=== PATIENT | female | born 1955 | race Caucasian/White ===

== ENCOUNTER 2017-05-19 06:42 | Day surgery (SDC) | payer OTHER ==
[~2017-05-19] VITALS: Ht 165.1 cm; Wt 72.8 kg
[~2017-05-19 06:42] MED LIST: ACET500 PO; CENTRUM SILVER1 EAC1 PO; CHOL10002 PO; Cranberry500 M1 PO; DOCU100 PO; HYDR1TAB94 PO; LORA10 PO; Milk Of Ma800 MG/5 M PO; SENN187 PO; Stool Softener100 MG PO; TOLTERODINE PO
== END 2017-05-19 09:14 | disposition home or self-care (01) ==
LOC: ORSCSDS 06:42
PROVIDERS: Internal Medicine Gastroenterology
PROC: 0DBH8ZX Excision of Cecum, Via Natural or Artificial Opening Endoscopic, Diagnostic (ICD-10-PCS; principal; 2017-05-19 08:00)
PROC: 0DBL8ZX Excision of Transverse Colon, Via Natural or Artificial Opening Endoscopic, Diagnostic (ICD-10-PCS; principal; 2017-05-19 08:00)
PROC: 0DBP8ZX Excision of Rectum, Via Natural or Artificial Opening Endoscopic, Diagnostic (ICD-10-PCS; principal; 2017-05-19 08:00)
DX: Z12.11 Encounter for screening for malignant neoplasm of colon (principal); D12.0 Benign neoplasm of cecum; D12.3 Benign neoplasm of transverse colon; K62.1 Rectal polyp; K63.89 Other specified diseases of intestine
CPT/HCPCS: 88305; J0330; J1980; J2405; J7120

== ENCOUNTER 2024-03-29 13:01 | Day surgery (SDC) | payer OTHER ==
[~2024-03-29] VITALS: Ht 162.6 cm; Wt 68.3 kg
[~2024-03-29 13:01] MED LIST changes: +Balanced Salt Epinephrine Irrigation Solution 500 mL IR SCH; +FentaNYL Citrate 50 MCG/ML 2 ML Injection ONE; +Lidocaine HCl/Pf 1% 5 ML VIAL XX SCH; +Midazolam HCl 1MG / ML 2ML Vial ONE; +Moxifloxacin HCL 0.5 MG/0.1 ML 0.4MLSYR LEFTEYE SCH; +PHENYLEPHRINE\\TROPICAMIDE\\TETRACAINE OPHTHALMIC DILATING SOLN LEFTEYE PRN; +Povidone-Iodine 450 DROP/30 ML Solution LEFTEYE SCH; +Povidone-Iodine 450 DROP/30 ML Solution ONE; +Tetracaine HCl/Pf 0.5% Opth Soln 4 ml ONE
[2024-03-29] MEDS ORDERED: FOSAMAX70 MG PO (13:20)
--- NOTE | 2024-03-29 13:29 | NUR ---
03/29/24 1329 Justina Fitch CALL LIGHT WITHIN REACH. TETRACAINE IN LEFT EYE AT 1323 AND PLEDGETT IN AT 1325
[2024-03-29] MEDS ORDERED: NS 500 ML IV ONE ×2 (13:57→13:58)
[2024-03-29 14:36] VITALS: BP 124/65
== END 2024-03-29 14:50 | disposition home or self-care (01) ==
LOC: ORSCSDS 13:01
PROVIDERS: Student in an Organized Health Care Education/Training Program
PROC: 08RK3JZ Replacement of Left Lens with Synthetic Substitute, Percutaneous Approach (ICD-10-PCS; principal; 2024-03-29 14:30)
DX: H25.813 Combined forms of age-related cataract, bilateral (principal); F03.90 Unspecified dementia, unspecified severity, without behavioral disturbance, psychotic disturbance, mood disturbance, and anxiety; Z87.820 Personal history of traumatic brain injury; Z79.899 Other long term (current) drug therapy
CPT/HCPCS: J2250; J3010; J7040; V2632

== ENCOUNTER 2024-04-05 12:53 | Day surgery (SDC) | payer OTHER ==
[~2024-04-05] VITALS: Ht 162.6 cm; Wt 67.6 kg
[~2024-04-05 12:53] MED LIST changes: +FOSAMAX70 MG PO; -FentaNYL Citrate 50 MCG/ML 2 ML Injection ONE; -Midazolam HCl 1MG / ML 2ML Vial ONE; -Moxifloxacin HCL 0.5 MG/0.1 ML 0.4MLSYR LEFTEYE SCH; +Moxifloxacin HCL 0.5 MG/0.1 ML 0.4MLSYR RIGHTEYE SCH; -PHENYLEPHRINE\\TROPICAMIDE\\TETRACAINE OPHTHALMIC DILATING SOLN LEFTEYE PRN; +PHENYLEPHRINE\\TROPICAMIDE\\TETRACAINE OPHTHALMIC DILATING SOLN RIGHTEYE PRN; -Povidone-Iodine 450 DROP/30 ML Solution LEFTEYE SCH; +Povidone-Iodine 450 DROP/30 ML Solution RIGHTEYE SCH
[2024-04-05] MEDS ORDERED: Midazolam HCl 1MG / ML 2ML Vial ONE (13:19)
[2024-04-05] MEDS ORDERED: FentaNYL Citrate 50 MCG/ML 2 ML Injection ONE (13:25)
[2024-04-05 14:26] VITALS: BP 124/66
== END 2024-04-05 14:46 | disposition home or self-care (01) ==
LOC: ORSCSDS 12:53
PROVIDERS: Student in an Organized Health Care Education/Training Program
PROC: 08RJ3JZ Replacement of Right Lens with Synthetic Substitute, Percutaneous Approach (ICD-10-PCS; principal; 2024-04-05 14:30)
DX: H25.811 Combined forms of age-related cataract, right eye (principal); Z96.1 Presence of intraocular lens; F03.90 Unspecified dementia, unspecified severity, without behavioral disturbance, psychotic disturbance, mood disturbance, and anxiety; Z87.820 Personal history of traumatic brain injury; Z79.899 Other long term (current) drug therapy
CPT/HCPCS: J2250; J3010; V2632

== ENCOUNTER 2024-05-02 17:05 | Emergency (ER) | payer OTHER ==
[~2024-05-02] VITALS: Ht 165.1 cm; Wt 65.8 kg
[~2024-05-02 17:05] MED LIST changes: -Balanced Salt Epinephrine Irrigation Solution 500 mL IR SCH; -Lidocaine HCl/Pf 1% 5 ML VIAL XX SCH; -Moxifloxacin HCL 0.5 MG/0.1 ML 0.4MLSYR RIGHTEYE SCH; -PHENYLEPHRINE\\TROPICAMIDE\\TETRACAINE OPHTHALMIC DILATING SOLN RIGHTEYE PRN; -Povidone-Iodine 450 DROP/30 ML Solution ONE; -Povidone-Iodine 450 DROP/30 ML Solution RIGHTEYE SCH; -Tetracaine HCl/Pf 0.5% Opth Soln 4 ml ONE
[2024-05-02 19:09] VITALS: BP 124/78
== END 2024-05-02 20:20 | disposition home or self-care (01) ==
LOC: ER 17:05
DX: S82.64XA Nondisplaced fracture of lateral malleolus of right fibula, initial encounter for closed fracture (principal); S82.51XA Displaced fracture of medial malleolus of right tibia, initial encounter for closed fracture; S92.101A Unspecified fracture of right talus, initial encounter for closed fracture; R62.50 Unspecified lack of expected normal physiological development in childhood; Z79.899 Other long term (current) drug therapy; Z79.83 Long term (current) use of bisphosphonates; W19.XXXA Unspecified fall, initial encounter
CPT/HCPCS: 29515; 73610; 99283-25